=== PATIENT | female | born 1990 | race Caucasian/White ===

== ENCOUNTER 2018-08-03 08:00 | Outpatient (CLI) | payer OTHER ==
[2018-08-03] MEDS ORDERED: ZONEGRAN100 MG PO (16:14)
[2018-08-03] MEDS ORDERED: KEPPRA1000 MG PO (16:14)
[2018-08-10 07:38] VITALS: BMI 31.5
== END 2018-08-03 08:01 | disposition home or self-care (01) ==
LOC: D.OPS 08:00
DX: Z01.812 Encounter for preprocedural laboratory examination (principal); Z01.810 Encounter for preprocedural cardiovascular examination; Z01.811 Encounter for preprocedural respiratory examination; Z53.9 Procedure and treatment not carried out, unspecified reason

== ENCOUNTER 2018-08-10 07:00 | Day surgery (SDC) | payer OTHER ==
[2018-08-03 16:57] LABS: HEMATOCRIT 39.9 % (36.0-48.0); HEMOGLOBIN 13.4 g/dL (12-16); MCH 28.3 pg (26.0-34.0); MCHC 33.6 g/dL (31.0-37.0); MCV 84.4 fL (80.0-100.0); MEAN PLATELET VOLUME 9.3 fL (7.4-10.4); RBC 4.73 10x6/uL (4.00-5.40); RDW 12.8 % (11.5-14.5); WBC 7.9 10x3/uL (4.8-10.8)
[~2018-08-10] VITALS: Ht 170.2 cm; Wt 91.2 kg
[~2018-08-10 07:00] MED LIST: KEPPRA1000 MG PO; ZONEGRAN100 MG PO
[2018-08-10 07:38] VITALS: Ht 170.2 cm; Wt 91.2 kg
[2018-08-10 08:04] LABS: HCG URINE NEGATIVE (NEGATIVE)
[2018-08-10] MEDS ORDERED: TYLENOL W/CODEI1 TAB PO (12:21)
[2018-08-10] MEDS ORDERED: IBUPROFEN800 MG PO (12:22)
== END 2018-08-10 14:10 | disposition home or self-care (01) ==
LOC: D.OPS 07:00 → D.PAN 07:30 → D.OPS 09:00
PROVIDERS: Anesthesiology; Obstetrics & Gynecology
DX: Q52.3 Imperforate hymen (principal)

== ENCOUNTER 2021-02-14 05:24 | Day surgery (SDC) | payer OTHER ==
[2021-02-11 16:46] LABS: BASOPHILS 0.4 % (0-2); EOSINOPHILS 4.5 % (0-7); HEMOGLOBIN 12.3 g/dL (12-16); LYMPHOCYTE ABS# 1.95 10x3/uL (1.18-3.74); LYMPHOCYTES 25.5 % (15-50); MCH 26.9 pg (26.0-34.0); MCHC 32.4 g/dL (31.0-37.0); MCV 83.2 fL (80.0-100.0); MEAN PLATELET VOLUME 9.1 fL (7.4-10.4); MONOCYTES 7.2 % (2-11); NEUTROPHIL ABS# 4.69 10x3/uL (1.56-6.13); NEUTROPHILS 61.4 % (40-80); RBC 4.57 10x6/uL (4.00-5.40); RDW 13.1 % (11.5-14.5); WBC 7.6 10x3/uL (4.8-10.8)
[2021-02-11 16:49] LABS: PLATELET COUNT 277 10x3/uL (130-400)
[2021-02-11 17:29] LABS: CALC OSMOLALITY 279 mosm/kg (275-300); CALCIUM 9.2 mg/dL (8.5-10.1); CARBON DIOXIDE 27.6 mmol/L (21.0-32.0); CHLORIDE - SERUM 103 mmol/L (98-107); CREATININE - SERUM 0.7 mg/dL (0.6-1.3); GLUCOSE 86 mg/dL (74-106); POTASSIUM - SERUM 4.2 mmol/L (3.5-5.1); SODIUM 141 mmol/L (136-145); UREA NITROGEN 13 mg/dL (7-18); eGFR NON AFRICAN AMERICAN > 90 mL/min (90-120)
[~2021-02-14] VITALS: Ht 170.2 cm; Wt 97.5 kg
--- NOTE | ~2021-02-14 | OP ---
PATIENT NAME: TOÑA WHITAKER MEDICAL RECORD: [id number] :88 LOCATION:D.OPS ADMISSION DATE: SURGEON: SHAY NORMAN MD DATE OF OPERATION: 02/14/2021 PREOPERATIVE DIAGNOSES: 1. Endometrial thickening. 2. History of polycystic ovary syndrome. POSTOPERATIVE DIAGNOSES: 1. Endometrial thickening. 2. History of polycystic ovary syndrome. 3. Endometrial polyps. PROCEDURE: Hysteroscopy, dilation and curettage. SURGEON: Shay Norman MD ANESTHESIA: General endotracheal. INTRAVENOUS FLUID: Per anesthesia record. HYSTEROSCOPIC FLUID LOSS: Less than 100 cc of 0.9 normal saline. SPECIMENS: Included endometrial curettings. FINDINGS: 1. Grossly normal-appearing external genitalia and cervix. 2. Proliferative appearing endometrium with several small endometrial polyps. COMPLICATIONS: None apparent. DESCRIPTION OF PROCEDURE: The patient was taken to the operating room where general anesthesia was achieved without difficulty. The patient was then prepped and draped in normal sterile fashion in dorsal lithotomy position in the [facility]. The bladder was drained of approximately 100 cc of straw colored urine and a Graves speculum was placed into the vagina. The cervix was identified and grasped on its anterior lip with a single tooth tenaculum. The uterus was sounded and then dilated to approximately 6 mm, at which point, the hysteroscope was introduced into the cervix. Survey of the endocervical and endometrial canals was performed and the patient was then further dilated to approximately 8 mm, at which point a #1 curette was used to perform curettage of the entire endometrial cavity. Good hemostasis noted status post. The hysteroscope was then used to resurvey the endometrial canal, which now appeared to be significantly thinner with previously noted polyps now removed. Hysteroscope was then removed and followed by the single-tooth tenaculum with good hemostasis noted from the tenaculum site. The patient tolerated the procedure well and was transported to postanesthesia recovery stable without incident. TRANSINT:[id number] Voice Confirmation ID: [id number] DOCUMENT ID: [id number] OPERATIVE REPORT [id number] TOÑA WHITAKER SHAY NORMAN MD CC: [id number] DICTATION DATE: 03/10/21526 CONCERT SINGER: 03/10/21 0801 [facility] [place] 02/14/21 [id number] [place] [id number]
[~2021-02-14 05:24] MED LIST changes: +CLARITIN 10 MG10 MG PO; +FOLATE0.4 MG PO; +IBUPROFEN800 MG PO; +LAMICTAL100 MG PO; +MULTI-DAY VITAM1 TAB PO; +TERBINAFINE HC250 MG PO; +TYLENOL W/CODEI1 TAB PO
[2021-02-14 06:16] VITALS: BP 101/74; BMI 33.7
[2021-02-14 06:28] LABS: HCG URINE NEGATIVE (NEGATIVE)
[2021-02-14 07:05] VITALS: Ht 170.2 cm; Wt 97.5 kg
--- NOTE | 2021-02-14 09:23 | NUR ---
DC INSTRUCTIONS GIVEN TO PT/FAMILY. STATE UNDERSTANDING.
--- NOTE | 2021-02-14 09:47 | NUR ---
DC'D IV CATH FULLY INTACT. WILL DC SHORTLY.
--- NOTE | 2021-02-14 10:02 | NUR ---
PT LEFT UNIT VIA AT [id number]
== END 2021-02-14 09:54 | disposition home or self-care (01) ==
LOC: D.OPS 05:24
PROVIDERS: Anesthesiology; ATTEND Obstetrics & Gynecology
DX: R93.89 Abnormal findings on diagnostic imaging of other specified body structures (principal); N84.0 Polyp of corpus uteri; E28.2 Polycystic ovarian syndrome